=== PATIENT | female | born 1960 | race Caucasian/White ===

== ENCOUNTER → 2017-01-04 | Outpatient (CLI) | payer BC ==
--- NOTE | 2017-01-04 16:02 | MAMMOGRAPHY REPORT ---
BILATERAL DIGITAL DIAGNOSTIC MAMMOGRAM TOMOSYNTHESIS WITH CAD AND TARGETED RIGHT ULTRASOUND: 7 CLINICAL HISTORY: The patient reports a right breast lump which has been present for 7-8 years, altho ugh she feels that it may be getting larger and feels harder. TECHNIQUE: Breast tomosynthesis in addition to standard 2D mammography was performed. Current study was also evaluated with a Computer Aided Detection (CAD) system. Bilateral CC and MLO 2-D and tomosy nthesis images were obtained. COMPARISON: Comparison is made to exams dated: 02/10/2016 mammogram, 01/28/2015 ultrasound, 01/28/2015 mammogram, 07/15/2014 mammogram, 07/09/2013 mammogram, and 07/02/2012 mammogram - [facility] enter. BREAST COMPOSITION: There are scattered areas of fibroglandular density in both breasts. FINDINGS: A triangle marker hartmann the site of the palpable lump in the right 3:00 breast anteriorly. No suspicious mass or other suspicious mammographic abnormalities seen in this region. The remainde r of both breasts are stable compared to prior exams, without suspicious masses, calcifications, or a reas of architectural distortion noted. Targeted ultrasound was performed of the area of the palpable lump pointed out by the patient, in the right breast at approximately 2 to 2:30 at the areolar edge. At the site of the palpable lump there is an ill-defined hypoechoic region in the skin which measures 6 x 5 mm. Given the dermal location, it is benign and may represent a sebaceous cyst or other benign skin finding. No suspicious mass or other suspicious abnormality is seen within the underlying breast parenchyma. IMPRESSION: ACR BI-RADS CATEGORY 2: BENIGN, TARGETED ULTRASOUND ACR BI-RADS CATEGORY 2: BENIGN Ill-defined 6 mm hypoechoic region within the skin at the site of the palpable lump in the right 2:00 breast at the areolar edge. Given the intradermal location, it is benign and may represent a sebace ous cyst or other benign skin process. There is no mammographic or targeted sonographic evidence of malignancy. Recommend clinical follow-up for the right breast lump, and recommend routine bilateral screening mammograms in one year. The patient has been verbally notified of the results. Approximately 10% of breast cancers are not detected with mammography. A negative mammographic report should not delay biopsy if a clinically suggestive mass is present. Alia Gardner M.D. ah/:01/04/2017 12:36:50 Hand Chain Maker: Su GUZMAN(Betty)(Ade), [facility] letter sent: Normal 1/2 BI-RADS Code: ACR BI-RADS Category 2: Benign Ultrasound BI-RADS: ACR BI-RADS Category 2: Benign
== END | disposition home or self-care (01) ==
LOC: C.MAMM 11:36
PROVIDERS: ATTEND Family Medicine
DX: R22.2 Localized swelling, mass and lump, trunk (principal)

== ENCOUNTER → 2017-02-20 | Outpatient (CLI) | payer BC | END | disposition home or self-care (01) | LOC: C.MAMM 13:42 | PROVIDERS: ATTEND Family Medicine | DX: M85.89 Other specified disorders of bone density and structure, multiple sites (principal) ==

== ENCOUNTER → 2017-08-28 | Outpatient (CLI) | payer OTHER ==
--- NOTE | 2017-08-28 16:27 | DIAGNOSTIC IMAGING REPORT ---
CERVICAL SPINE 2 OR 3 VIEWS HISTORY: 57 years-old Female CERVICALGIA acute posterior left sided neck pain status post recent fall COMPARISON: Cervical spine radiographs 03/21/2013 TECHNIQUE: 3 views of the cervical spine FINDINGS: No acute cervical spine fracture or subluxation is identified. Moderate intervertebral disc space narrowing is seen at the C4-C5, C5-C6 and C6-C7 levels with moderate multilevel endplate spurring and facet arthrosis. Mild to moderate intervertebral disc space narrowing at C3-C4. There is slight reversal of the normal cervical lordosis centered at the C3-C4 level. Degenerative changes have progressed from comparison. No prevertebral soft tissue swelling. IMPRESSION: 1. No acute cervical spine fracture or subluxation. 2. Progressively worsened multilevel degenerative changes about the cervical spine as above. The above report was generated using voice recognition software. It may contain grammatical, syntax or spelling errors. Electronically signed by: Santosh Ruvalcaba M.D. 08/28/2017 4:25 PM Dictated Date/Time: 08/28/2017 4:23 PM
== END | disposition home or self-care (01) ==
LOC: C.RAD 16:02
PROVIDERS: ATTEND Family Medicine
DX: M54.2 Cervicalgia (principal)

== ENCOUNTER → 2018-01-05 | Outpatient (CLI) | payer OTHER ==
--- NOTE | 2018-01-08 13:57 | MAMMOGRAPHY REPORT ---
BILATERAL DIGITAL SCREENING MAMMOGRAM TOMOSYNTHESIS WITH CAD: 01/05/2018 CLINICAL HISTORY: Routine screening. Patient has no complaints. TECHNIQUE: Breast tomosynthesis in addition to standard 2D mammography was performed. Current study w as also evaluated with a Computer Aided Detection (CAD) system. COMPARISON: Comparison is made to exams dated: 01/04/2017 mammogram, 02/10/2016 mammogram, 01/28/2015 m ammogram, 07/15/2014 mammogram, 07/09/2013 mammogram, and 07/02/2012 mammogram - [facility] nter. BREAST COMPOSITION: There are scattered areas of fibroglandular density in both breasts. FINDINGS: No suspicious masses, calcifications, or areas of architectural distortion are noted in either breast . There has been no significant interval change compared to prior exams. IMPRESSION: ACR BI-RADS CATEGORY 1: NEGATIVE There is no mammographic evidence of malignancy. A 1 year screening mammogram is recommended.( 019) The patient will receive written notification of the results. Some breast cancers are not detected with mammography. A negative mammographic report should not mook y biopsy if a clinically suggestive mass is present. Alia Gardner M.D. ah/:01/05/2018 16:05:09 Marketing Officer: RT Gt(R)(M)(BD), [facility] letter sent: Normal 1/2 BI-RADS Code: ACR BI-RADS Category 1: Negative
== END | disposition home or self-care (01) ==
LOC: C.MAMM 13:44
PROVIDERS: ATTEND Family Medicine
DX: Z12.31 Encounter for screening mammogram for malignant neoplasm of breast (principal)

== ENCOUNTER 2019-05-22 05:37 | Observation (INO) ==
--- NOTE | 2019-05-13 13:34 | PAT Medication Instructions ---
Medication Instructions Date of Service May 13, 2019 Home Medications Medication Instructions Recorded ondansetron HCl 4 mg tablet 4 mg PO Q6H PRN 3 Days #12 tab 05/02/19 tramadol 50 mg tablet 50 mg PO Q4H PRN 3 Days #18 tab 05/02/19 bupropion HCl 150 mg tablet,12 hr sustained-release 150 mg PO QAM celecoxib 200 mg capsule 200 mg PO QAM citalopram 20 mg tablet 20 mg PO QPM ondansetron HCl 4 mg tablet 4 mg PO Q6H PRN pregabalin 75 mg capsule 75 mg PO BID tramadol 50 mg tablet 50 mg PO Q4H PRN calcium carbonate [Calcium 600] 600 mg PO BID cetirizine [Zyrtec] 10 mg PO QAM cholecalciferol (vitamin D3) 1,000 unit PO QAM multivitamin 1 tab PO QPM salmon oil-omega-3 fatty acids [[place] Oil-1000] 1 cap PO QPM vitamin E 400 unit PO QAM ASK your surgeon for instructions celecoxib 200 mg capsule 200 mg PO QAM STOP taking 2 weeks before surgery If surgery is within 2 weeks, stop taking as soon as possible. salmon oil-omega-3 fatty acids [[place] Oil-1000] 1 cap PO QPM vitamin E 400 unit PO QAM DO NOT take the morning of surgery calcium carbonate [Calcium 600] 600 mg PO BID cetirizine [Zyrtec] 10 mg PO QAM cholecalciferol (vitamin D3) 1,000 unit PO QAM Take morning of surgery With a small sip of water, OTHERWISE NOTHING TO EAT OR DRINK AFTER MIDNIGHT: bupropion HCl 150 mg tablet,12 hr sustained-release 150 mg PO QAM ondansetron HCl 4 mg tablet 4 mg PO Q6H PRN (if needed) pregabalin 75 mg capsule 75 mg PO BID tramadol 50 mg tablet 50 mg PO Q4H PRN (if needed, may be taken up to four hours before surgery) Take evening before surgery citalopram 20 mg tablet 20 mg PO QPM ondansetron HCl 4 mg tablet 4 mg PO Q6H PRN (if needed) pregabalin 75 mg capsule 75 mg PO BID tramadol 50 mg tablet 50 mg PO Q4H PRN (if needed) calcium carbonate [Calcium 600] 600 mg PO BID cholecalciferol (vitamin D3) 1,000 unit PO QAM multivitamin 1 tab PO QPM Other Notes If you have any questions please call us at [phone] or [phone] or [phone] or [phone]
--- NOTE | 2019-05-14 10:14 | Anesthesiology Consultation ---
Date of Service May 14, 2019 Assessment & Plan (1) Encounter for pre-operative examination: Chart Review Chart Review: Acceptable Risk for Surgery (pending pre-op testing (Labs and EKG)) and Patient seen in Pre Admission Testing Teaching & Discussion Instructed NPO after midnight before surgery, except medications with 15 cc of water. Medication instructions provided according to the PAT guidelines. History Surgery Operation Date: 05/22/19 07:30 Proposed Procedures p Abdominoplasty with Suchtion Assisted Lipectomy of Abdomen and Bilateral Flanks - Galina Macedo MD Height/Weight Height: 5 ft 2 in Weight: 65.9 kg Allergies Allergy/AdvReac Type Severity Reaction Status Date / Time Penicillins Allergy Unknown Hives Verified 05/06/19 11:12 Sulfa (Sulfonamide Allergy Unknown Hives Verified 05/06/19 11:12 Antibiotics) Medications Home Medications Medication Instructions Recorded Confirmed Last Taken bupropion HCl 150 mg tablet,12 hr 150 mg PO QAM 05/02/19 05/06/19 Unknown sustained-release celecoxib 200 mg capsule 200 mg PO QAM 05/02/19 05/06/19 Unknown citalopram 20 mg tablet 20 mg PO QPM 05/02/19 05/06/19 Unknown ondansetron HCl 4 mg tablet 4 mg PO Q6H PRN 3 Days #12 tab 05/02/19 05/06/19 Unknown pregabalin 75 mg capsule 75 mg PO BID 05/02/19 05/06/19 Unknown tramadol 50 mg tablet 50 mg PO Q4H PRN 3 Days #18 tab 05/02/19 05/06/19 Unknown calcium carbonate [Calcium 600] 600 mg PO BID 05/06/19 05/06/19 Unknown cetirizine [Zyrtec] 10 mg PO QAM 05/06/19 05/06/19 Unknown cholecalciferol (vitamin D3) 1,000 unit PO QAM 05/06/19 05/06/19 Unknown [Vitamin D3] multivitamin 1 tab PO QPM 05/06/19 05/06/19 Unknown salmon oil-omega-3 fatty acids 1 cap PO QPM 05/06/19 05/06/19 Unknown [[place] Oil-1000] vitamin E 400 unit PO QAM 05/06/19 05/06/19 Unknown Past Medical History Medical History Anxiety Degenerative disc disease Hearing deficit [place] History of migraine Osteoarthritis Osteopenia Spinal stenosis Exercise / Class Metabolic Activity 1 > 8 Run/Swim/Ski/Tennis (Pt is very active) Past Surgical History Surgical History History of arthroscopy of left knee History of colonoscopy History of tonsillectomy History of wisdom tooth extraction Hx of reconstruction of anterior cruciate ligament tear RT Nausea and vomiting after administration of anesthetic agent Past Anesthesia History No Hx of Anesthesia Complications (other than PONV) and No Family Hx of Anesthesia Complications (other than PONV) History of PONV No Hx of Motion Sickness and History of PONV Social History Smoking Status: Former smoker tobacco type: cigarettes Do You Dip or Chew Tobacco: No Smoking End Date: QUIT 1985 Hx Alcohol Use: Yes Alcohol type: hard liquor alcohol intake frequency: a few times a month Hx Substance Use: No substance use type: does not use Review of Systems Pt denies any recent chest pain, shortness of breath, palpitations, cough, fever or URI. Physical Exam Vital Signs BP: 121/87 P: 71bpm SPO2: 98% RA T: 98.7 F R: 16 ENMT Mouth: + chipped teeth; no dental restorations and no loose teeth Thyromental Distance: > or= 3.5 Finger Breadths (4) Mallampati Class: I Mouth / Teeth: 1. small chip Neck normal visual inspection; neck extension not limited Respiratory normal respiratory effort Auscultation: lungs clear to auscultation bilaterally Cardiovascular Rate/Rhythm: regular rate and regular rhythm Heart Sounds: no murmur Extremities: no edema
[2019-05-22] MEDS ORDERED: SCOPOLAMINE 1.5 MG TDSY TD SCH (06:00)
[2019-05-22] MEDS ORDERED: LR 15ML/HR IV SCH (06:00)
[2019-05-22] MEDS ORDERED: CLINDAMYCIN 600 MG/54 ML BAG IV SCH (06:00)
[2019-05-22] MEDS ORDERED: ACETAMINOPHEN 1000 MG/100 ML IV IV ONE (06:57)
[2019-05-22] MEDS ORDERED: ONDANSETRON INJ 2 MG/ML 2 ML VIAL IV PRN (07:02)
[2019-05-22] MEDS ORDERED: ePHEDrine sulfate 50 MG/ML AMP IV PRN (07:02)
[2019-05-22] MEDS ORDERED: ATROPINE SULFATE 0.1 MG/ML 10ML SYR IV PRN (07:02)
[2019-05-22] MEDS ORDERED: fentaNYL citrate 100 MCG/2 ML VIAL IV PRN (07:02)
[2019-05-22] MEDS ORDERED: BUPIVACAINE 0.25% 30 ML VIAL ONE (07:05)
[2019-05-22] MEDS ORDERED: LIDOCAINE HCL 1% 20 ML VIAL ONE ×2 (07:05→08:07)
[2019-05-22] MEDS ORDERED: LIDOCAINE/EPINEPHRINE 1% 20 ML VIAL ONE (07:05)
[2019-05-22] MEDS ORDERED: EPINEPHrine INJ 1 MG/ML AMP ONE ×2 (07:06→08:07)
[2019-05-22] MEDS ORDERED: fentaNYL citrate 100 MCG/2 ML VIAL ONE (07:07)
[2019-05-22] MEDS ORDERED: MIDAZOLAM HCL 1 MG/ML 2ML VIAL ONE (07:07)
--- NOTE | 2019-05-22 07:13 | History & Physical Bridge Note ---
Date of Service May 22, 2019 History & Physical Bridge Note I have examined the patient, reviewed the History & Physical and in the interval since the performance of the History & Physical I have noted the following changes of clinical significance: no changes noted
[2019-05-22] MEDS ORDERED: HYDROmorphone INJ 2 MG/ML SYR/VIAL ONE (07:48)
[2019-05-22] MEDS ORDERED: DiphenhydrAMINE HCL 50 MG/ML VIAL ONE (08:54)
[2019-05-22] MEDS ORDERED: LARYING-O-JET KIT (LTA) ONE (08:54)
[2019-05-22] MEDS ORDERED: ePHEDrine sulfate 50 MG/ML SYR ONE ×2 (08:54→10:07)
[2019-05-22] MEDS ORDERED: raNITIdine HCl 25 MG/ML VIAL IV ONE (08:54)
[2019-05-22] MEDS ORDERED: PROPOFOL IV EMULSION 10 MG/ML 20 ML VIAL IV ONE ×5 (08:54→10:41)
[2019-05-22] MEDS ORDERED: GLYCOPYRROLATE 0.2 MG/ML VIAL ONE (08:54)
[2019-05-22] MEDS ORDERED: METOCLOPRAMIDE HCL INJ 5 MG/ML 2 ML VIAL ONE (08:54)
[2019-05-22] MEDS ORDERED: NEOSTIGMINE METHYLSULFATE 5 MG/5 ML SYR ONE (08:54)
[2019-05-22] MEDS ORDERED: ONDANSETRON INJ 2 MG/ML 2 ML VIAL ONE (08:54)
[2019-05-22] MEDS ORDERED: ROCURONIUM BROMIDE 10 MG/ML 5 ML VIAL ONE ×2 (08:54→10:07)
[2019-05-22] MEDS ORDERED: LIDOCAINE HCL 2% 2 ML VIAL/AMP(20MG/ML) INFIL ONE (08:54)
--- NOTE | 2019-05-22 10:51 | Post Operative Brief Note ---
PG Immediate Post Op with CF Date of Surgery May 22, 2019 Pre & Post Diagnosis Operation Date: 05/22/19 07:30 Pre-Op Diagnosis: Encounter for Cosmetic Surgery Post-Op Diagnosis: Encounter for Cosmetic Surgery I identified the patient and participated in the time-out.: Yes Procedure Operation Date: 05/22/19 07:30 Actual Procedures p Abdominoplasty with Suction Assisted Lipectomy of Abdomen and Bilateral Flanks(Bilateral) - Galina Macedo MD Surgeon Galina Macedo MD Knurling Machine Tender Jillian Mckeon PA-C Estimated Blood Loss 50 Findings Consistent with Post-Op Diagnosis Specimens Specimen Description: none per surgeon Drains Negron Catheter (16 romanian 10ml latex free) and Daniele-Pinto Drain (x2)
[2019-05-22] MEDS ORDERED: MoRPHine SULFATE 4 MG/ML 1 ML CARP\\VIAL IV PRN (11:22)
[2019-05-22] MEDS ORDERED: MoRPHine SULFATE 10 MG/ML CARP/VIAL IV PRN (11:22)
[2019-05-22] MEDS ORDERED: PROMETHAZINE HCL 12.5 MG in SODIUM CHLORIDE 0.9% 50 ML IV PRN (11:26)
[2019-05-22] MEDS ORDERED: LORazepam 0.5 MG TAB PO PRN (11:26)
[2019-05-22] MEDS ORDERED: DiphenhydrAMINE HCL 50 MG/ML VIAL IV PRN (11:26)
--- NOTE | 2019-05-22 11:52 | Operative Report ---
PG Post Operative Report Pre & Post Diagnosis Operation Date: 05/22/19 07:30 Pre-Op Diagnosis: Encounter for Cosmetic Surgery Post-Op Diagnosis: Encounter for Cosmetic Surgery I identified the patient and participated in the time-out.: Yes Procedure Operation Date: 05/22/19 07:30 Actual Procedures p Abdominoplasty with Suction Assisted Lipectomy of Abdomen and Bilateral Flanks(Bilateral) - Galina Macedo MD Surgeon Galina Macedo MD Optical Element Coater Jillian Mckeon PA-C Estimated Blood Loss 50 Findings Consistent with Post-Op Diagnosis Specimens none Drains JPx2 Anesthesia Type General Complications none Disposition Disposition: Recovery Room Indications desired cosmetic improvement of abdominal wall contour Description of Procedure Risks, benefits, and alternatives of the procedure were explained to the patient who agreed and signed consent. She was identified and marked in the preoperative holding area. She was brought to the operating room where she was positioned supine and placed under general anesthesia without incident. Negron catheter was placed. Surgical site was prepped and draped sterilely. A time-out procedure was performed. I reassessed my markings which included a lower horizontal abdominal incision with the midportion 7 cm above the vulvar commissure. Incision was marked bilaterally to the ASIS. 5 access incisions were marked for liposuction. I began by injecting 1% lidocaine with epinephrine along the planned incision as well as planned liposuction port incisions. Each of the 5 access incisions was made using a 15 blade scalpel. Tumescent solution was infiltrated into the central and upper abdomen just above the umbilicus, as well as bilateral flanks. Total volume of tumescent in the epigastric area was 400 cc, 350 cc in each flank. I then pre-tunneled with a 4 mm liposuction cannula. Liposuction was performed to each flank in the epigastric area using a fanning technique from multiple access incisions. End points were bloody drainage and uniform pinch test. Care was taken to suction in the sub-Juliet plane in the epigastric area. Total volume of Lipo aspirate from the abdomen was approximately 400 cc, approximately 350 cc per flank. The lower abdominal incision was made using a 15-blade scalpel to incise epidermis and superficial dermis followed by electrocautery to incise deep dermis, subcutaneous fat, Juliet's fascia down to the abdominal wall. Care was taken to bevel superiorly in order to avoid encountering the inguinal region. Electrocautery was used to elevate the anterior abdominal skin flap ligating the perforating vessels with 3-0 Vicryl ties and electrocautery. Dissection was carried up to the level of the umbilicus in the midline. At this point, a 15-blade scalpel was used to circumscribe the umbilicus. A vertical midline incision was then made from the incision to the umbilicus and divided in the midline using electrocautery. The umbilicus was then dissected out using electrocautery down to abdominal wall. The umbilical stalk appeared viable throughout the procedure. Dissection was continued superiorly to the xyphoid process, narrowing dissection above the umbilicus. Plication of the rectus diastases was performed using 0 Prolene [id number] sutures both above and below the umbilicus. A running 0 Prolene suture was used to imbricate the [id number] sutures and reinforced the repair both above and below the umbilicus. At this point, the bed was flexed and the mid portion of the superior skin flap was inset above the mons pubis using 2-0 Vicryl suture. Skin flaps were marked for excision. A 15-blade scalpel was used to make these incisions and the incision was deepened through dermis, subcutaneous fat, Juliet's fat using electrocautery. A 15 Israeli Rashad drains were placed in the wound bed and brought out through a separate stab incision in the mons pubis. The drains were sutured into place using 3-0 nylon. The umbilicus was brought out through an inverted triangular incision in the abdominal wall. This was performed using a 15-blade scalpel. Prior to closure, a total of 10 mL of 0.25% Marcaine plain were injected into the fascia as well as along the incisions. Wound closure was then begun lateral to medial using 2-0 Vicryl Juliet's fascia sutures, 2-0 Vicryl deep dermal sutures, 2-0 PDO running superficial Quill suture, 3-0 Monocryl running subcuticular suture. Umbilicus was brought out through the inverted triangle incision and was sutured into place using 4-0 chromic half buried horizontal mattress sutures. The umbilicus was dressed using Xeroform and the incision was dressed using Dermabond Prineo followed by dry dressings and an abdominal binder. The procedure was tolerated well. Patient was awakened and transferred to the room in satisfactory condition. Jillian Mckeon PA-C was present and scrubbed throughout the entire procedure, was instrumental in assisting in retraction and simultaneous wound closure. I attest to the content of the Intraoperative Record and any orders documented therein. Any exceptions are noted below.
--- NOTE | 2019-05-22 12:09 | Anesthesiology Progress Note ---
Date of Service May 22, 2019 Anesthesia Post Procedure Vital Signs Vital Signs: Temp Pulse Pulse Resp BP BP Pulse Ox 05/22/19 12:00 96 H 15 130/85 100 05/22/19 11:50 36.3 C L 95 H 12 128/92 97 05/22/19 11:40 97 H 11 L 127/86 99 05/22/19 11:30 87 21 128/82 95 05/22/19 11:22 35.4 C L 80 21 127/82 92 05/22/19 06:13 37.1 C 80 18 134/98 96 Pain Intensity Right Lower Back: Pain Intensity: 3 Transfer of Care Handoff Completed per policy Notes Mental Status: alert / awake / arousable and participated in evaluation Patient Amnestic to Procedure: Yes Nausea / Vomiting: adequately controlled Pain: adequately controlled Airway Patency, RR, SpO2: stable & adequate BP & HR: stable & adequate Hydration State: stable & adequate Anesthetic Complications: no major complications apparent and Pt Satisfied with anesthetic care
[2019-05-22] MEDS: D5W AND 1/2NSS + 20MEQ KCL 20 MEQ/1,000 ML BAG IV SCH ×2 (13:36→22:29)
[2019-05-22] MEDS: ONDANSETRON INJ 2 MG/ML 2 ML VIAL IV PRN ×2 (13:59→20:29)
[2019-05-22] MEDS: MoRPHine SULFATE 2 MG/ML CARP IV PRN ×3 (13:59→21:41)
[2019-05-22] MEDS: CHECK SCOPOLAMINE PATCH PLACEMENT SCH (15:55)
[2019-05-22] MEDS: CLINDAMYCIN 600 MG in DEXTROSE 5% 50 ML IV SCH ×2 (15:55→22:29)
[2019-05-22] MEDS: TRAMADOL HCL 50 MG TABLET PO PRN (18:13)
[2019-05-22] MEDS ORDERED: CITALOPRAM 20 MG TAB PO SCH (21:00)
[2019-05-22] MEDS: PREGABALIN 75 MG CAP PO SCH (21:27)
[2019-05-23] MEDS: TRAMADOL HCL 50 MG TABLET PO PRN ×3 (00:52→12:03)
[2019-05-23] MEDS: CHECK SCOPOLAMINE PATCH PLACEMENT SCH ×2 (00:52→08:25)
[2019-05-23 07:06] VITALS: BP 96/75; PULSE 77; TEMP 98.8; O2SAT 92
[2019-05-23 07:43] LABS: INR 1.1 (0.9-1.1); Prothrombin Time 11.3 Seconds (9.0-12.0)
[2019-05-23 08:04] LABS: Creatinine Clr Calc Pharmacy 77.8 ml/min; Est GFR (African American) 110.7; Est GFR (Non-African American) 95.5
[2019-05-23] MEDS: D5W AND 1/2NSS + 20MEQ KCL 20 MEQ/1,000 ML BAG IV SCH (08:26)
[2019-05-23] MEDS: PREGABALIN 75 MG CAP PO SCH (08:36)
[2019-05-23] MEDS ORDERED: ENOXAPARIN INJ 40 MG/0.4 ML SYR SQ SCH (09:00)
[2019-05-23] MEDS ORDERED: CETIRIZINE HCL 10 MG TABLET PO SCH (09:00)
[2019-05-23] MEDS ORDERED: MULTIVITAMIN TAB PO SCH (09:00)
[2019-05-23] MEDS ORDERED: BuPROPion SR 150 MG TABCR PO SCH (09:00)
[2019-05-23] MEDS: CLINDAMYCIN 600 MG in DEXTROSE 5% 50 ML IV SCH (09:03)
--- NOTE | 2019-05-23 09:54 | Surgery Progress Note ---
Date of Service May 23, 2019 Assessment & Plan (1) S/P abdominoplasty: POD #1 s/p Abdominoplasty with Liposuction. Emma is doing well- will send Percocet to [facility] pharmacy. Patient was given script for post-op nausea at last office visit. Patient is aware that drains will remain at discharge. We reviewed drain management, including importance of recording drain output amounts. Patient is ok for discharge to home later. She is tolerating a regular diet without issue. Both verbal and written discharge instructions provided to patient. All questions answered. Patient has follow-up appointment in office tomorrow. Subjective Emma is resting in bed- she reports pain 5/10. She denies nausea. She has been tolerating a regular diet. She is concerned that Tramadol may not hold her pain at a comfortable level at home. Physical Exam Physical Exam: On physical exam- abdominal binder in place- unclasped to see surgical dressings. Surgical dressings are clean, dry, intact. BERRY drains x [address] with serosang drainage. Results & Data Vital Signs (Past 12 Hours) Vital Signs Temp Pulse Resp BP Pulse Ox 05/23/19 07:05 37.1 C 77 16 96/75 L 92 05/22/19 23:10 37.3 C 93 H 18 107/72 94 PG Care Time/CCT Total # of Minutes Spent Total Time Spent with Patient: Total time spent is greater than 50% in coordination of care (as documented) at patient's floor/unit and/or counseling patient:
--- NOTE | 2019-05-23 16:50 | Discharge Summary ---
Date of Service May 23, 2019 Admission HPI Per Admitting Provider Please see admission H & P. Admission Exam Per Admitting Provider Please see admission H & P. Principal Diagnosis Encounter for Cosmetic Surgery. Discharge Data Allergies Allergy/AdvReac Type Severity Reaction Status Date / Time Penicillins Allergy Unknown Hives Verified 05/22/19 06:06 Sulfa (Sulfonamide Allergy Unknown Hives Verified 05/22/19 06:06 Antibiotics) Procedures Performed Operation Date: 05/22/19 07:30 Actual Procedures p Abdominoplasty with Suction Assisted Lipectomy of Abdomen and Bilateral Flanks(Bilateral) - Galina Macedo MD Hospital Course (1) S/P abdominoplasty: Emma is a 59-year-old female who presented to [facility] for Abdominoplasty with Suction Assisted Lipectomy of Abdomen and Bilateral Flanks. Negron catheter was placed intraoperatively. There were no intraoperative complications. She was taken to recovery and transferred to med/surg for observation. On POD #1, her pain was controlled with PO pain medication. Negron catheter was removed at 0600 on POD #1. She was provided a script for Tramadol for post-op pain, but was concerned that that would not keep her pain at a tolerable level. I did send a script for Percocet to [facility]'s pharmacy. She was tolerating a regular diet, was voiding on own and ambulating in room. On exam, his vitals were stable. Abdominal binder was unclasped and surgical dressings were clean, dry, intact. BERRY drains x [address]. Drain management, including recording drainage amounts, was reviewed with patient and patient's . She was discharged home with instructions to follow-up in the office in 1 day. All questions were answered. Total Time Total Time Spent Total Time Spent (In Minutes): 5 Discharge Plan Discharge Items Patient Disposition: Home - Self-Care Reason For Visit: Encounter for Cosmetic Surgery Discharge Diagnosis: Encounter for Cosmetic Surgery Activity: As commented below Non-emergency contact: Surgeon Call non-emergency contact if: you have any medication questions, your pain is not controlled, your temperature is above 101.5, your wound has increased redness and your wound has increased drainage Follow-up/Referrals: Clara Weinstein [Primary Care Provider] - Diet: Regular Addtl Attending Provider Instructions: ACTIVITY RECOMMENDATIONS: __Normal activities _X_No bending, lifting or straining __No driving _X_Driving allowed when you are off pain medications _X_Walking permitted __You should have help at home for ___ days DRESSINGS: __No dressings required _X_Keep dressings dry/in place until first office visit __Remove dressings ___ and leave dressings off __Apply ice ___ days __Remove dressings and reapply garment __Apply antibiotic ointment (Bacitracin, Neosporin, etc) to wounds 3-4 times/day for 10 days BATHING: _X_Keep dressings dry _X_Sponge bathing permitted- Keep surgical dressings dry. __Showering permitted _X_No swimming, hot tubs or soaking in a tub MEDICATIONS: Resume previous medications unless instructed otherwise by your surgeon. _X_Do not use aspirin, Motrin, Advil or Ibuprofen as these may promote bleeding. Please use Tylenol. _X_Prescription(s) provided: Prescription for post-op pain medication and post- op nausea/vomiting provided to patient at last office visit. New post-op pain medication sent to patient's pharmacy. OTHER INSTRUCTIONS: _X_Record drain output 2-3 times per day SPECIAL CARE INSTRUCTIONS: * It is normal to have a mild fever after surgery. If your temperature is higher than 101.5 degrees F, please call the office at [phone]. * Constipation is a typical side effect of pain medication. An [id number]-nfwieqa stool softener will help relieve this. * Leaking around surgical drains may occur and should not cause concern. Sometimes these drains become clogged. If this happens, remove the bulb and milk the clot out of the tube, then replace the bulb. * Drainage from wounds after liposuction is normal and should be expected. Garments will become soiled. You should protect furniture and bedding. This drainage should mostly subside within 2-3 days. Leave garments in place unless instructed to remove them. * If you have unusual drainage from a wound or are concerned you have an infection or have any questions or concerns, please call the office at [phone]. FOLLOW UP VISIT: If not already scheduled, please call the office, , when you return home after surgery to schedule an appointment to be seen in _1__ days. Pending Studies at Discharge: No Stand-Alone Forms: My [facility], Smoking Cessation Medications and DC Order Prescriptions: New oxycodone-acetaminophen [Percocet] 5-325 mg tablet 1 tab PO Q4H PRN (Reason: pain) 3 Days Qty: 18 RF: 0 Continued pregabalin [Lyrica] 75 mg capsule 75 mg PO BID RF: 0 bupropion HCl [Wellbutrin SR] 150 mg tablet sustained-release 12 hr 150 mg PO QAM RF: 0 citalopram [Celexa] 20 mg tablet 20 mg PO QPM RF: 0 ondansetron HCl [Zofran] 4 mg tablet 4 mg PO Q6H PRN (Reason: nausea and vomiting) 3 Days Qty: 12 RF: 0 tramadol 50 mg tablet 50 mg PO Q4H PRN (Reason: pain) 3 Days Qty: 18 RF: 0 multivitamin Tablet 1 tab PO QPM RF: 0 cetirizine [Zyrtec] 10 mg Tablet 10 mg PO QAM RF: 0 calcium carbonate [Calcium 600] 600 mg calcium (1,500 mg) Tablet 600 mg PO BID RF: 0 vitamin E 400 unit Capsule 400 unit PO QAM RF: 0 [place] Oil-1000 1,000-200 mg Capsule 1 cap PO QPM RF: 0 cholecalciferol (vitamin D3) [Vitamin D3] 1,000 unit Tablet,Chewable 1,000 unit PO QAM RF: 0 Discontinued celecoxib [Celebrex] 200 mg capsule 200 mg PO QAM RF: 0 Discharge Orders: Discharge Order (Routine); Ordered 05/23/19 Ordered By: Jillian Mckeon Admission Data Admit Date/Time: 05/22/19 11:26 Attending Provider: Galina Macedo Admit Provider: Galina Macedo Primary Care Provider: Clara Weinstein Other Interventions: Discharge Summary Assessment (RN) Last Done: 05/23/19 10:35 DC Date/Time DO NOT enter until pt leaves facility: 05/23/19 13:06
== END 2019-05-23 13:06 | disposition home or self-care (01) ==
LOC: ASU 05:37 → 3W 05:37
DX: Z88.0 Allergy status to penicillin; E65 Localized adiposity; Z87.891 Personal history of nicotine dependence; Z88.2 Allergy status to sulfonamides; F41.9 Anxiety disorder, unspecified; M85.80 Other specified disorders of bone density and structure, unspecified site